=== PATIENT | female | born 1935 | race African-American/Black ===

== ENCOUNTER → 2017-06-19 | Outpatient (CLI) | payer OTHER, MEDICARE ==
[~2017-06-19] VITALS: Ht 157.5 cm; Wt 81.7 kg
[~2017-06-19] MED LIST: AMLODIPINE-VAL1 EAC3 PO; ASPIR 8181 MG PO; BENTYL 10 MG CA10 M1 PO; BYETTA SQ; CELEBREX 200 M200 MG PO; CELEXA40 MG PO; CRESTOR10 MG PO; DIABETA 5MG TABL5 MG PO; ESTROVEN 155 M155 MG PO; FISH OIL 1,001000 M2 PO; FOLIC ACID20 MG PO; GLUCOPHAGE XR500 MG PO; HYDROCODONE-AP1 EAC6 PO; LANTUS SC; LEFLUNOMIDE 1010 MG PO; METHOTREXATE 22.5 MG PO; MOBIC15 MG PO; NOVOLIN 70100 UNIT/1 SUBQ; OMEPRAZOLE40 MG PO; VITAMIN D1000 UNI1 PO
--- NOTE | ~2017-06-19 | EKG ---
[place] [address] [facility] [place] [address] ELECTROCARDIOGRAM REPORT Name: MAGDALENO BHAKTA Room #: REG TRACY [place]#: [id number] Admission: 06/19/17 Attend Phys: Kanu Riley Discharge: Date of : 37 Report #: [id number] THIS REPORT FOR: //name// [facility] Test Date: 2017-06-19 Test Time: 08:49:30 Pat Name: MAGDALENO BHAKTA Department: Room: Gender: F Payroll Officer: NAHED : 1935 Requested By: Eyal Jones Order Number: [id number] MD: Measurements Intervals [place] Rate: 77 P: 49 MT: 173 QRS: -50 QRSD: 95 T: 92 QT: 404 QTc: 458 Interpretive Statements Sinus rhythm Left anterior fascicular block Abnormal R-wave progression, late transition LVH with secondary repolarization abnormality Baseline wander in lead(s) II,aVR,aVF,V1,V2 Compared to ECG 08/15/2008 12:19:01 Early repolarization now present [email or web address] By: [id number] Epiphany Epiphany, /EPI
--- NOTE | ~2017-06-19 | P ---
[facility] [place] [address] PROCEDURE REPORT Name: MAGDALENO BHAKTA ONIEL Room #: REG TRACY [place]#: [id number] Admission: 06/19/17 Attend Phys: Kanu Riley Discharge: Date of : 37 Report #: [id number] THIS REPORT FOR: //name// CC: Kanu Foreman DATE OF SERVICE: 06/19/2017 PROCEDURE PERFORMED: Colonoscopy with biopsies. HISTORY OF PRESENT ILLNESS: The patient is an 81-year-old female with intermittent diarrhea, abdominal pain. Denies any blood in her stools. No family history of colon cancer. DESCRIPTION OF PROCEDURE: The risks and benefits of the procedure were explained to the patient, those risks including but not limited to bleeding, perforation, the risk of sedation. She understood these risks and gave informed consent. Sedation was given using propofol per anesthesia. Next, a digital rectal exam was initially performed, which was normal. Next, using a standard Fujinon colonoscope, the scope was placed in the patient's anus and advanced under direct vision to the cecum. The overall prep was excellent. The cecum and ileocecal valve were normal in appearance. In the ascending colon, there was a 5 mm sessile polyp. This was removed with cold forceps, otherwise normal. The transverse, descending and sigmoid colon were all normal. Because of the patient's history of intermittent diarrhea, random biopsies were obtained to rule out the possibility of microscopic colitis. The rectal mucosa was normal. On retroflexion, no abnormalities were noted. The scope was then withdrawn and the procedure terminated. The patient tolerated the procedure well. IMPRESSION: 1. Small colonic polyp. 2. Otherwise, normal colonoscopy. RECOMMENDATIONS: 1. Await biopsy results. 2. Would recommend a trial of probiotics and a script will be given for Levsin to be used on a p.r.n. basis. Thank you for allowing me to participate in her care. By: [id number] Kanu Cheney MD /nt
--- NOTE | ~2017-06-19 | S ---
[facility] [address] [place] [address] SURGICAL PATH RPT PROCEDURE Name: MAGDALENO BHAKTA Room #: REG TRACY [place]#: [id number] Admission: 06/19/17 Date of : 37 Discharge: Report #: [id number] Path Case #: [id number] PATHOLOGY REPORT DRAFT COLLECTION DATE: 06/19/2017 RECEIVED DATE: 06/19/2017 SPECIMEN(S) RECEIVED: A.Duodenum bx B.Gastritis bx C.Random colon bx D.Polyp at ascending colon
--- NOTE | ~2017-06-19 | P ---
[facility] [place] [address] PROCEDURE REPORT Name: MAGDALENO BHAKTA ONIEL Room #: REG TRACY [place]#: [id number] Admission: 06/19/17 Attend Phys: Kanu Riley Discharge: Date of : 37 Report #: [id number] THIS REPORT FOR: //name// CC: Kanu Foreman MD DATE OF PROCEDURE: 06/19/2017. PROCEDURE PERFORMED: Upper endoscopy with biopsies. HISTORY OF PRESENT ILLNESS: The patient is an 81-year-old female with intermittent diarrhea, abdominal bloating, and abdominal pain. Her weight has been stable. Plan is for EGD and colonoscopy. DESCRIPTION OF PROCEDURE: The risks and benefits of the procedure were explained to the patient, those risks including but not limited to bleeding, perforation, the risk of sedation. She understood these risks and gave informed consent. Sedation was given using propofol per anesthesia. Next, using a standard [employer] upper endoscope, the scope was placed in the patient's mouth and advanced under direct vision through the esophagus, stomach and into the second portion of the duodenum. The esophagus was normal throughout. The GE junction was normal. Overall, the gastric mucosa was normal. Because of this patient's symptoms, biopsies were obtained to rule out H. pylori. The pylorus was normal and patent. The duodenal bulb, first and second portion were all normal. Biopsies were also obtained in the duodenum to rule out celiac sprue. The scope was then withdrawn and the procedure terminated. The patient tolerated the procedure well. IMPRESSION: Normal upper endoscopy. RECOMMENDATIONS: 1. Await biopsy results. 2. We will proceed with colonoscopy next day. Thank you for allowing me to participate in her care. By: [id number] Kanu Cheney MD /nt
== END | disposition home or self-care (01) ==
LOC: GI 05-22 10:26
DX: K63.5 Polyp of colon (principal); I10 Essential (primary) hypertension; E78.5 Hyperlipidemia, unspecified; K21.9 Gastro-esophageal reflux disease without esophagitis; E11.9 Type 2 diabetes mellitus without complications; F41.8 Other specified anxiety disorders; F32.89 Other specified depressive episodes; Z79.4 Long term (current) use of insulin; Z90.710 Acquired absence of both cervix and uterus; Z96.652 Presence of left artificial knee joint; Z98.41 Cataract extraction status, right eye; Z98.42 Cataract extraction status, left eye; Z98.890 Other specified postprocedural states; Z79.899 Other long term (current) drug therapy; Z79.82 Long term (current) use of aspirin
CPT/HCPCS: 62110

== ENCOUNTER → 2017-12-21 | Outpatient (CLI) | payer OTHER, MEDICARE | LOC: RAD 14:27 | DX: R06.02 Shortness of breath (principal) ==